=== PATIENT | male | born 1995 | race Caucasian/White ===

== ENCOUNTER 2016-10-02 03:33 | Emergency (ER) | payer OTHER ==
[2016-10-02 03:42] VITALS: O2SAT 96
[2016-10-02] MEDS ORDERED: ONDANSETRON 4 MG/2 ML VIAL ONE (03:53)
[2016-10-02] MEDS ORDERED: NS 1,000 ML IV ONE (04:03)
[2016-10-02] MEDS ORDERED: FAMOTIDINE 20 MG/NACL 50 ML IV ONE (04:03)
[2016-10-02] MEDS ORDERED: ONDANSETRON 4 MG/2 ML VIAL IVP ONE (04:03)
--- NOTE | 2016-10-02 04:03 | EDPHY ---
H & P Stated Complaint: EtOH, vomiting Time Seen by Provider: 10/02/16 03:43 HPI/ROS: HPI The patient presents with alcohol intoxication and subsequent vomiting which began several hours prior to presentation. Began drinking alcohol at approximately 8:00 p.m. last night and had multiple hard alcohol drinks. He then began vomiting a few hours ago which was head dark bloody streaks in it. He is not complaining of abdominal pain but continues to feel nauseated. He drinks heavily daily. He denies any dark or bloody stools. REVIEW OF SYSTEMS Constitutional: No fever, no chills. Eyes: No discharge. ENT: No sore throat. Cardiovascular: No chest pain, no palpitations. Respiratory: No cough, no shortness of breath. Gastrointestinal: No abdominal pain, positive for vomiting. Genitourinary: No hematuria. Musculoskeletal: No back pain. Skin: No rashes. Neurological: No headache. PMHx: No diabetes, no hypertension Soc Hx: Alcohol abuse, employed FHx: PHYSICAL General Appearance: Appears to be slightly intoxicated Eyes: Pupils equal and round no pallor or injection ENT, Mouth: Mucous membranes moist Respiratory: There are no retractions, lungs are clear to auscultation Cardiovascular: Regular rate and rhythm Gastrointestinal: Abdomen is soft and non-tender, no masses, bowel sounds normal Neurological: A&O, moves all extremities Skin: Warm and dry, no rashes Musculoskeletal: Neck is supple non tender Extremities: symmetrical, full range of motion Psychiatric: Patient is oriented X 3, there is no agitation Source: Patient, Other - Personal History Current Tetanus/Diphtheria Vaccine: Yes - Medical/Surgical History Hx Asthma: No Hx Chronic Respiratory Disease: No Hx Diabetes: No Hx Cardiac Disease: No Hx Renal Disease: No Hx HIV/AIDS: No Hx Splenectomy or Spleen Trauma: No Other PMH: PSHx: denies. PMHx: denies - Social History Smoking Status: Current every day smoker Constitutional: Initial Vital Signs Temperature (C) 36.3 C 10/02/16 03:35 Heart Rate 73 10/02/16 03:35 Respiratory Rate 16 10/02/16 03:35 Blood Pressure 131/86 H 10/02/16 03:35 O2 Sat (%) 96 10/02/16 03:35 O2 Delivery Mode Room Air Allergies/Adverse Reactions: No Known Allergies Allergy (Unverified 10/02/16 03:35) Home Medications: Medication Instructions Recorded NK [No Known Home Meds] 10/02/16 Medical Decision Making ED Course/Re-evaluation: 5:20 a.m.- In the emergency room, the patient was given IV fluids, Zofran IV and Pepcid IV with improvement in his symptoms. He had no vomiting here in the emergency room. The description, it does sound like he had blood in his vomit which is concerning for Kelly-Haney tear versus alcoholic gastritis. However, without ongoing symptoms, I feel he is suitable for discharge. Labs were checked and were unremarkable except for slightly elevated sodium is likely related to dehydration. His repeat abdominal exam was benign. He will be discharged with his sober friends. Differential Diagnosis: This is a 21 year old male who presents with his friends for alcohol intoxication and then subsequent vomiting which appeared bloody. He has had no vomiting here. His abdominal exam is benign and he has normal vital signs. Differential diagnosis includes Kelly-Haney tear, alcoholic gastritis, less likely esophageal varices. - Data Points Laboratory Results: Laboratory Results 10/02/16 04:00 10/02/16 04:00 Medications Given: Discontinued Medications Sodium Chloride (Ns) 1,000 mls @ 0 mls/hr IV ONCE ONE PRN Reason: Wide Open Stop: 10/02/16 04:04 Last Admin: 10/02/16 04:12 Dose: 1,000 mls Famotidine/Sodium Chloride (Pepcid 20 Mg (Premix)) 50 mls @ 200 mls/hr IV EDNOW ONE Stop: 10/02/16 04:17 Last Admin: 10/02/16 04:11 Dose: 50 mls Ondansetron HCl (Zofran) 4 mg IVP EDNOW ONE Stop: 10/02/16 04:04 Last Admin: 10/02/16 04:13 Dose: 4 mg Departure - Departure Disposition: Home, Routine, Self-Care Clinical Impression: Alcoholic intoxication Qualifiers: Complication of substance-induced condition: with unspecified complication Qualified Code(s): F10.129 - Alcohol abuse with intoxication, unspecified Vomiting Qualifiers: Vomiting type: unspecified Vomiting Intractability: non-intractable Nausea presence: with nausea Qualified Code(s): R11.2 - Nausea with vomiting, unspecified Condition: Good Instructions: Alcohol Intoxication (ED) Referrals: AA Hotline [Outside] - As per Instructions [facility] 24 Hours [Outside] - As per Instructions Stand Alone Forms: Work Excuse
[2016-10-02 04:12] VITALS: TEMP 97.3
[2016-10-02] MEDS ORDERED: FAMOTIDINE 20 MG/2 ML SDV ONE (04:14)
[2016-10-02 04:25] LABS: ALANINE AMINOTRANSFERASE 28 IU/L (21-72); ALBUMIN 4.9 g/dL (3.5-5.0); ALKALINE PHOSPHATASE 34 IU/L (38-126); ANION GAP 12 mEq/L (8-16); ASPARTATE AMINOTRANSFERASE 27 IU/L (17-59); BILIRUBIN,TOTAL 0.5 mg/dL (0.1-1.4); CALCIUM 9.3 mg/dL (8.5-10.4); CARBON DIOXIDE 25 mEq/l (22-31); CHLORIDE 110 mEq/L (97-110); CREATININE 0.9 mg/dL (0.7-1.3); GLOMERULAR FILTRATION RATE > 60; GLUCOSE 124 mg/dL (70-100); POTASSIUM 3.9 mEq/L (3.5-5.2); SODIUM 147 mEq/L (134-144); TOTAL PROTEIN 7.8 g/dL (6.3-8.2)
[2016-10-02 04:26] LABS: % IMMATURE GRANULYOCYTES 0.4 % (0.0-1.1); ABSOLUTE IMMATURE GRANULOCYTES 0.04 10^3/uL (0.00-0.10); ADD DIFF? NO; ADD MORPH? NO; ADD SCAN? NO; ATYPICAL LYMPHOCYTE FLAG 0 (0-99); FRAGMENT RBC FLAG 0 (0-99); HEMATOCRIT 43.9 % (40.0-51.0); HEMOGLOBIN 15.9 g/dL (13.7-17.5); LEFT SHIFT FLG 0 (0-99); LIPEMIA HEMOLYSIS FLAG 90 (0-99); MEAN CELL HEMOGLOBIN 32.1 pg (27.9-34.1); MEAN CELL HEMOGLOBIN CONCENTR. 36.2 g/dL (32.4-36.7); MEAN CELL VOLUME 88.5 fL (81.5-99.8); MEAN PLATELET VOLUME 8.9 fL (8.7-11.7); PLATELET CLUMPS FLAG 0 (0-99); PLATELET COUNT 245 10^3/uL (150-400); RED BLOOD CELL COUNT 4.96 10^6/uL (4.40-6.38)
[2016-10-02 05:37] VITALS: BP 129/93; PULSE 89; RESP 18
== END 2016-10-02 05:35 | disposition home or self-care (01) ==
DX: F10.129 Alcohol abuse with intoxication, unspecified (principal); F17.200 Nicotine dependence, unspecified, uncomplicated
CPT/HCPCS: 96365; J2405